=== PATIENT | male | born 1995 | race Caucasian/White ===

== ENCOUNTER 2019-02-28 13:50 | Emergency (ER) | payer OTHER ==
[~2019-02-28] VITALS: Ht 177.8 cm; Wt 82.5 kg
[2019-02-28] MEDS ORDERED: NS 1,000 ML IV ONE (14:30)
[2019-02-28 14:59] LABS: BASO % 0.4 % (0.0-1.0); EOS # 0.2 10^3/uL (0.0-0.5); EOS % 1.5 % (0.0-3.0); HEMATOCRIT 44.3 % (42.0-52.0); HEMOGLOBIN 15.6 g/dl (13.5-17.5); LYMPH # 1.7 10^3/uL (1.5-5.0); LYMPH % 15.5 % (24.0-44.0); MEAN CORPUSCULAR HGB CONC 35.2 g/dl (32.0-36.5); MONO # 1.4 10^3/uL (0.0-0.8); MONO % 12.7 % (0.0-5.0); NEUTROPHILS # 7.6 10^3/uL (1.5-8.5); NEUTROPHILS % 69.6 % (36.0-66.0); PLATELET COUNT, AUTOMATED 193 10^3/uL (150-450); RED BLOOD COUNT 4.87 10^6/uL (4.30-6.10); WHITE BLOOD COUNT 10.9 10^3/uL (4.0-10.0)
[2019-02-28 15:24] LABS: BLOOD UREA NITROGEN 12 MG/DL (7-18); CALCIUM LEVEL 9.4 MG/DL (8.5-10.1); CARBON DIOXIDE LEVEL 31 MEQ/L (21-32); CHLORIDE LEVEL 107 MEQ/L (98-107); CK-MB VALUE MASS 1.3 NG/ML (<3.6); CPK CREATINE PHOSPHOKINASE 109 U/L (39-308); CREATININE FOR GFR 1.27 MG/DL (0.70-1.30); GLOMERULAR FILTRATION RATE > 60.0 (>60); GLUCOSE, FASTING 89 MG/DL (70-100); MB/CK RELATIVE INDEX 1.19 (< OR =4); POTASSIUM SERUM 4.1 MEQ/L (3.5-5.1); SODIUM LEVEL 142 MEQ/L (136-145); TROPONIN I < 0.02 NG/ML (< 0.10)
[2019-02-28 15:26] LABS: ERYTHROCYTE SEDIMENTATION RATE 2 mm/hr (0-15)
--- NOTE | 2019-02-28 15:33 | REP ---
Chest x-ray: Two views. History: Chest pain . Comparison study: No comparison . Findings: The lungs are well inflated and free of infiltrate. The pleural angles are sharp. The heart size is normal. Pulmonary vasculature is not increased. No significant bony abnormality is seen. Impression: Negative chest x-ray. Electronically Signed by Joey Quinn MD 02/28/2019 03:25 P
[2019-02-28 16:02] VITALS: BP 107/56
[2019-02-28] MEDS ORDERED: IBUP80TA PO (16:12)
--- NOTE | 2019-03-01 07:08 | ECGEPIP ---
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 Order Number: [id number] Reading MD: Edgard Mancuso Measurements Intervals [place] Rate: 60 P: 17 GA: 153 QRS: 21 QRSD: 94 T: 13 QT: 412 QTc: 412 Interpretive Statements SINUS RHYTHM NONSPECIFIC T WAVE ABNORMALITIES NO PRIORS FOR COMPARISON Electronically Signed on 03-01-2019 7:08:30 EDT by Edgard Mancuso
== END 2019-02-28 16:25 | disposition home or self-care (01) ==
LOC: M ED 13:50
DX: T50.B15A Adverse effect of smallpox vaccines, initial encounter (principal); Y92.9 Unspecified place or not applicable; Y93.9 Activity, unspecified; L29.9 Pruritus, unspecified; L98.499 Non-pressure chronic ulcer of skin of other sites with unspecified severity

== ENCOUNTER 2019-05-22 12:10 | Emergency (ER) | payer OTHER ==
[~2019-05-22] VITALS: Ht 177.8 cm; Wt 83.0 kg
[2019-05-22 12:10] VITALS: BP 133/83
[~2019-05-22 12:10] MED LIST: IBUP80TA PO
--- NOTE | 2019-05-22 12:40 | REP ---
Clinical: Trauma. Technique: AP, lateral, bilateral oblique views left fourth digit . Findings: The osseous structures and joint spaces are intact and there is no evidence for acute fracture or dislocation. Surrounding soft tissues are unremarkable. No subcutaneous emphysema or radiodense foreign body. Impression: No obvious acute fracture or dislocation involving the left fourth digit. If the patient remains symptomatic consider reevaluation in 3-5 days. Electronically Signed by Colt Bermeo MD 05/22/2019 12:32 P
[2019-05-22] MEDS ORDERED: IBUP-1022 PO (13:04)
== END 2019-05-22 13:14 | disposition home or self-care (01) ==
LOC: M ED 12:10
DX: S63.635A Sprain of interphalangeal joint of left ring finger, initial encounter (principal); X58.XXXA Exposure to other specified factors, initial encounter; Y92.89 Other specified places as the place of occurrence of the external cause; Y93.89 Activity, other specified; Y99.1 Military activity; F17.220 Nicotine dependence, chewing tobacco, uncomplicated

== ENCOUNTER 2019-11-01 13:15 | Emergency (ER) | payer OTHER ==
[~2019-11-01] VITALS: Ht 177.8 cm; Wt 87.8 kg
[~2019-11-01 13:15] MED LIST changes: +IBUP-1022 PO
[2019-11-01 14:05] LABS: BASO % 0.3 % (0.0-1.0); EOS # 0.1 10^3/uL (0.0-0.5); EOS % 1.6 % (0.0-3.0); HEMATOCRIT 45.9 % (42.0-52.0); HEMOGLOBIN 15.8 g/dl (13.5-17.5); LYMPH # 2.1 10^3/uL (1.5-5.0); LYMPH % 31.8 % (24.0-44.0); MEAN CORPUSCULAR HEMOGLOBIN 31.9 pg (27.0-33.0); MEAN CORPUSCULAR HGB CONC 34.4 g/dl (32.0-36.5); MEAN CORPUSCULAR VOLUME 92.5 fl (80.0-96.0); MONO # 0.7 10^3/uL (0.0-0.8); MONO % 10.9 % (0.0-5.0); NEUTROPHILS # 3.6 10^3/uL (1.5-8.5); NEUTROPHILS % 55.1 % (36.0-66.0); PLATELET COUNT, AUTOMATED 214 10^3/uL (150-450); RED BLOOD COUNT 4.96 10^6/uL (4.30-6.10); WHITE BLOOD COUNT 6.5 10^3/uL (4.0-10.0)
[2019-11-01] MEDS ORDERED: ISOVUE-370 76% 100ML VIAL As Ordered ONE (14:07)
[2019-11-01 14:41] LABS: ALBUMIN 4.6 GM/DL (3.2-5.2); BILIRUBIN,DIRECT 0.2 MG/DL (0.0-0.2); BILIRUBIN,TOTAL 0.7 MG/DL (0.2-1.0); TOTAL PROTEIN 7.6 GM/DL (6.4-8.2)
[2019-11-01 15:51] VITALS: BP 116/62
--- NOTE | 2019-11-01 16:26 | REP ---
CT ABDOMEN AND PELVIS WITH IV BUT WITHOUT ORAL CONTRAST: HISTORY: Rectal bleeding. Rule out infectious process. CT CONTRAST DOSE: 100 mL of intravenous Isovue 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 A normal bowel gas pattern is seen. The lung bases are clear. There is no evidence of pleural effusion or upper abdominal ascites. The liver and the spleen are normal in size homogeneous in texture. No adrenal lesion is seen. No pancreatic abnormality is observed. No abnormalities noted in the gallbladder. The kidneys enhance symmetrically. There is an intrarenal calculus in the upper pole of the left kidney measuring 3 mm in diameter. There is a 4 mm calculus in the lower pole of the right kidney. No hydronephrosis is seen. Normal appendix is seen in the right lower quadrant. Small and large bowel loops are unremarkable in the upper abdomen. Pelvic CT images show no evidence of pelvic mass or adenopathy. Urinary bladder is intact. Small and large bowel loops are unremarkable. There are water to dystrophic calcifications in the prostate. There is no CT evidence to suggest enterocolitis. No colonic mass lesion is observed. No abdominal wall defect is seen. Bone window settings show no bony destructive lesion. IMPRESSION: Bilateral intrarenal nephrolithiasis. No hydronephrosis seen. Otherwise negative CT study abdomen and pelvis. Electronically Signed by Joey Quinn MD 11/01/2019 04:32 P
== END 2019-11-01 15:55 | disposition home or self-care (01) ==
LOC: M ED 13:15
DX: K62.5 Hemorrhage of anus and rectum (principal); N20.0 Calculus of kidney
CPT/HCPCS: 36415; 74177; 80047; 80076; 83690; 85025; 99284; Q9967

== ENCOUNTER 2020-01-20 19:13 | Emergency (ER) | payer OTHER | END 2020-01-20 23:10 | disposition left against medical advice (07) | LOC: M ED 19:13 | DX: Z53.21 Procedure and treatment not carried out due to patient leaving prior to being seen by health care provider (principal) ==